=== PATIENT | male | born 1970 | race Caucasian/White ===

== ENCOUNTER 2018-05-01 18:09 | Emergency (ER) | payer SELFPAY ==
[~2018-05-01] VITALS: Ht 167.6 cm; Wt 68.0 kg
--- NOTE | 2018-05-01 18:21 | NUR ---
PT TO BED 3 VIA WHEELCHAIR
[2018-05-01 18:25] VITALS: BP 150/94
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
--- NOTE | 2018-05-01 19:10 | NUR ---
Pt report given to JOSEFINA RASHID . Transfer of care at this time.
--- NOTE | 2018-05-01 19:11 | NUR ---
ASSUMED CARE OF PT FROM JOSEFINA PHILLIP AT THIS TIME.
[2018-05-01] MEDS ORDERED: LORazepam 2 MG/ML VIAL IVP ONE (19:50)
--- NOTE | 2018-05-01 20:10 | NUR ---
Patient discharged with v/s stable. Written and verbal after care instructions given and explained. Patient alert, oriented and verbalized understanding of instructions. Ambulatory with steady gait. All questions addressed prior to discharge. ID band removed. Patient advised to follow up with PMD. Rx of KEFLEX, BACTRIM, MOTRIN given. Patient educated on indication of medication including possible reaction and side effects. Opportunity to ask questions provided and answered.
[2018-05-01 20:11] VITALS: BP 133/80
== END 2018-05-01 20:10 | disposition home or self-care (01) ==
LOC: MED 18:09
DX: L03.112 Cellulitis of left axilla (principal); L03.116 Cellulitis of left lower limb
CPT/HCPCS: 99283